=== PATIENT | male | born 1990 ===

== ENCOUNTER 2017-04-22 20:37 | Emergency (ER) | payer OTHER ==
[2017-04-22 21:34] VITALS: BP 127/81; PULSE 104; RESP 20; TEMP 98.3; O2SAT 100
[2017-04-22] MEDS ORDERED: Albuterol 0.083% Inhal Sol (2.5 mg/3 mL) UD IH STA (21:59)
[2017-04-22] MEDS ORDERED: Albuterol 0.083% Inhal Sol (2.5 mg/3 mL) UD ONE (22:05)
--- NOTE | 2017-04-22 22:06 | C.PDOC ---
History Of Present Illness 26 year old male presents to the ER with a complaint of cold like symptoms for the past month, associated with a fever yesterday. Patient states today he had a coughing attack at work and saw specs of blood in the sputum prompting ED visit. Patient reports positive sick contacts at home and at work. Denies sob, chest pain, rash, fever, abdominal pain, nausea, or vomiting. No h/o TB. Time Seen by Provider: 04/22/17 21:49 Chief Complaint (Nursing): Flu-like Symptoms History Per: Patient History/Exam Limitations: no limitations Onset/Duration Of Symptoms: Days Current Symptoms Are (Timing): Still Present Location Of Pain: None Sick Contacts (Context): None Associated Symptoms: Fever, Cough, Sinus Drainage, Nasal Congestion Ear Symptoms: Bilateral: None Recent travel outside of the [place]: No Past Medical History Reviewed: Historical Data, Nursing Documentation, Vital Signs Vital Signs: Last Vital Signs Temp 98.3 F 04/22/17 21:29 Pulse 104 H 04/22/17 21:29 Resp 20 04/22/17 23:07 BP 127/81 04/22/17 21:29 Pulse Ox 100 04/22/17 22:47 - Medical History PMH: Asthma Family History: States: Unknown Family Hx - Social History Hx Alcohol Use: No Hx Substance Use: No - Immunization History Hx Tetanus Toxoid Vaccination: No Hx Influenza Vaccination: No Hx Pneumococcal Vaccination: No Review Of Systems Constitutional: Positive for: Fever Respiratory: Positive for: Cough (Small amount of blood) Gastrointestinal: Negative for: Vomiting, Abdominal Pain, Diarrhea Physical Exam - Physical Exam Appears: Non-toxic, No Acute Distress Skin: Normal Color, Warm, Dry Head: Atraumatic, Normacephalic Eye(s): bilateral: Normal Inspection, EOMI Ear(s): Bilateral: Normal Nose: Normal Oral Mucosa: Moist Throat: Normal, No Erythema, No Exudate Neck: Normal, Normal ROM, Supple Chest: Symmetrical, No Tenderness Cardiovascular: Rhythm Regular Respiratory: Normal Breath Sounds, No Rales, No Rhonchi, No Wheezing, Other ( occassional cough noted) Gastrointestinal/Abdominal: Soft, No Tenderness Extremity: Normal ROM Neurological/Psych: Oriented x3, Normal Speech ED Course And Treatment O2 Sat by Pulse Oximetry: 100 (room air) Pulse Ox Interpretation: Normal - Radiology CXR: Interpreted by Me, Viewed By Me CXR Interpretation: Yes: No Acute Disease Progress Note: CXR ordered. Albuterol nebulizer administered. On reassessment, patient is resting comfortably with no wheezing, chest pain, or retractions. Oxygen saturation and breath sounds have improved. Patient is alert and oriented x 3. Patient was advised to follow up with physician/clinic in 1-2 days and return to ED if symptoms worsen or persist. Disposition - Disposition Referrals: Non [facility] Provider, [Primary Care Provider] - Disposition: HOME/ ROUTINE Disposition Time: 22:45 Condition: STABLE Additional Instructions: Vaya a valdez mdico o la clnica en 2-5 amato sin falta, para mas evaluacin. [place] los medicamentos ray indicado. Volver a la nadege de emergencia en cualquier momento si los sntomas persisten o empeoran. Prescriptions: Azithromycin [Zithromax] 250 mg PO DAILY #6 tab Guaifen/Dextromethorphan/PE [Mucinex Fast-Max Congest-Cough] 1 each PO Q6 #20 tablet predniSONE [Prednisone] 40 mg PO DAILY #8 tab Instructions: Acute Bronchitis Forms: [facility] (Occitan), Work Excuse Print Language: COMORAN - Clinical Impression Clinical Impression: Bronchitis - PA / HALL CLERK / Resident Statement MD/DO has reviewed & agrees with the documentation as recorded. - Scribe Statement The provider has reviewed the documentation as recorded by the Scribe Edgar Daniels All medical record entries made by the Scribe were at my direction and personally dictated by me. I have reviewed the chart and agree that the record accurately reflects my personal performance of the history, physical exam, medical decision making, and the department course for this patient. I have also personally directed, reviewed, and agree with the discharge instructions and disposition.
--- NOTE | 2017-04-23 10:12 | RAD ---
HISTORY: uri x 1 month COMPARISON: No prior. TECHNIQUE: Chest PA and lateral FINDINGS: LUNGS: No active pulmonary disease. PLEURA: No significant pleural effusion identified. No pneumothorax apparent. CARDIOVASCULAR: Normal. OSSEOUS STRUCTURES: No significant abnormalities. VISUALIZED UPPER ABDOMEN: Normal. OTHER FINDINGS: None. IMPRESSION: No active disease.
== END 2017-04-22 23:07 | disposition home or self-care (01) ==
LOC: C.ER 20:37 → SUPCPDRO 20:37 → C.ER 23:07
DX: J40 Bronchitis, not specified as acute or chronic (principal)